=== PATIENT | female | born 1965 | race Caucasian/White ===

== ENCOUNTER → 2017-01-20 | Outpatient (CLI) | payer BC ==
[~2017-01-20] MED LIST: ACET-1256 PO; CHOL1TAB12 PO; METH500T37 PO; ZNT/150 PO
--- NOTE | 2017-01-20 14:24 | MAMMOGRAPHY REPORT ---
BILATERAL DIGITAL SCREENING MAMMOGRAM TOMOSYNTHESIS WITH CAD: 01/20/2017 CLINICAL HISTORY: Routine screening. Patient has no complaints. TECHNIQUE: Breast tomosynthesis in addition to standard 2D mammography was performed. Current study was also evaluated with a Computer Aided Detection (CAD) system. COMPARISON: Comparison is made to exams dated: 01/15/2016 mammogram, 09/02/2014 mammogram, 08/30/2013 m ammogram, 06/15/2012 mammogram, 12/16/2010 mammogram, and 12/16/2010 ultrasound - [facility]. BREAST COMPOSITION: There are scattered areas of fibroglandular density in both breasts. FINDINGS: No suspicious masses, calcifications, or areas of architectural distortion are noted in ei ther breast. There has been no significant interval change compared to prior exams. IMPRESSION: ACR BI-RADS CATEGORY 1: NEGATIVE There is no mammographic evidence of malignancy. A 1 year screening mammogram is recommended. The pa tient will receive written notification of the results. Approximately 10% of breast cancers are not detected with mammography. A negative mammographic report should not delay biopsy if a clinically suggestive mass is present. Yazmin Nino M.D. /:01/20/2017 12:31:08 Bakery Assistant: Kendal SCHMITZ(Gagan)(M), [facility] letter sent: Normal 1/2 BI-RADS Code: ACR BI-RADS Category 1: Negative
== END | disposition home or self-care (01) ==
LOC: C.MAMM 12:04
PROVIDERS: ATTEND Internal Medicine
DX: Z12.31 Encounter for screening mammogram for malignant neoplasm of breast (principal)

== ENCOUNTER → 2017-01-30 | Outpatient (CLI) | payer BC ==
[2017-01-30 12:50] LABS: BASO % 0.8 %; BASO ABS # 0.04 K/uL (0-0.2); COMPLETE YES; EOS % 8.8 %; HEMATOCRIT 38.7 % (37-47); IG% 0.2 %; LYMPH % 27.9 %; LYMPH ABS # 1.39 K/uL (1.2-3.4); MEAN CELL VOLUME 89.6 fL (80-100); MEAN CORPUSCULAR HEMOGLOBIN 29.6 pg (25-34); MEAN CORPUSCULAR HGB CONC 33.1 g/dl (32-36); MEAN PLATELET VOLUME 10.5 fL (7.4-10.4); MONO % 6.8 %; NEUT % 55.5 %; PLATELET COUNT 284 K/uL (130-400); RED BLOOD COUNT 4.32 M/uL (4.2-5.4); WHITE BLOOD COUNT 4.98 K/uL (4.8-10.8)
[2017-01-30 13:09] LABS: ALKALINE PHOSPHATASE 83 U/L (45-117); ALT/SGPT 20 U/L (12-78); AST/SGOT 13 U/L (15-37); BLOOD UREA NITROGEN 17 mg/dl (7-18); BUN/CREATININE RATIO 29.7 (10-20); CALCIUM 8.9 mg/dl (8.5-10.1); CARBON DIOXIDE 29 mmol/L (21-32); CHLORIDE 107 mmol/L (98-107); CHOLESTEROL 162 mg/dl (0-200); CHOLESTEROL/HDL RATIO 2.3; CREATININE 0.58 mg/dl (0.60-1.20); GLUCOSE 78 mg/dl (70-99); HDL CHOLESTEROL 71 mg/dl; LDL CHOLESTEROL CALCULATED 79 mg/dl; MAGNESIUM 2.1 mg/dl (1.8-2.4); POTASSIUM 3.7 mmol/L (3.5-5.1); SODIUM 143 mmol/L (136-145); TRIGLYCERIDES 58 mg/dl (0-150); VERY LOW DENSITY LIPOPROT CALC 12 mg/dl
[2017-01-30 13:18] LABS: FERRITIN 123.5 ng/ml (8.0-388.0); TOTAL IRON BINDING CAPACITY 295 mcg/dl (250-450)
[2017-02-02 13:29] LABS: VIT B1 PLASMA(THIAMIN)**90353 9 nmol/L (8-30)
== END | disposition home or self-care (01) ==
LOC: C.LAB 10:29
PROVIDERS: ATTEND Physician Assistant Medical
DX: R42 Dizziness and giddiness (principal); Z98.84 Bariatric surgery status

== ENCOUNTER → 2017-11-09 | Outpatient (CLI) | payer BC ==
[2017-11-09 12:19] LABS: BASO % 1.3 %; BASO ABS # 0.07 K/uL (0-0.2); EOS % 7.6 %; HEMATOCRIT 39.7 % (37-47); HEMOGLOBIN 13.4 g/dL (12.0-16.0); IG# 0.02 K/uL (0.00-0.02); LYMPH % 25.8 %; LYMPH ABS # 1.36 K/uL (1.2-3.4); MEAN CELL VOLUME 88.8 fL (80-100); MEAN CORPUSCULAR HGB CONC 33.8 g/dl (32-36); MEAN PLATELET VOLUME 9.8 fL (7.4-10.4); MONO % 6.5 %; MONO ABS # 0.34 K/uL (0.11-0.59); NEUT % 58.4 %; NEUT ABS # 3.08 K/uL (1.4-6.5); PLATELET COUNT 325 K/uL (130-400); RED CELL DISTRIBUTION WIDTH CV 12.8 % (11.5-14.5); RED CELL DISTRIBUTION WIDTH SD 41.3 fL (36.4-46.3); WHITE BLOOD COUNT 5.27 K/uL (4.8-10.8)
[2017-11-09 12:30] LABS: ALBUMIN 3.7 gm/dl (3.4-5.0); ALT/SGPT 23 U/L (12-78); AST/SGOT 18 U/L (15-37); BLOOD UREA NITROGEN 21 mg/dl (7-18); CALCIUM 8.8 mg/dl (8.5-10.1); CARBON DIOXIDE 28 mmol/L (21-32); CREATININE 0.63 mg/dl (0.60-1.20); GLUCOSE 77 mg/dl (70-99); POTASSIUM 3.4 mmol/L (3.5-5.1); SODIUM 140 mmol/L (136-145)
[2017-11-09 12:41] LABS: ALKALINE PHOSPHATASE 83 U/L (45-117); CHOLESTEROL 170 mg/dl (0-200); LDL CHOLESTEROL CALCULATED 77 mg/dl; TOTAL PROTEIN 7.5 gm/dl (6.4-8.2)
[2017-11-10 15:28] LABS: ANA SCREEN TC 249X NEGATIVE (NEGATIVE)
== END | disposition home or self-care (01) ==
LOC: C.LABBFT 09:40
PROVIDERS: ATTEND Internal Medicine
DX: M25.50 Pain in unspecified joint (principal); Z13.6 Encounter for screening for cardiovascular disorders

== ENCOUNTER 2018-01-01 11:45 | Inpatient (IN) | payer BC ==
[2017-12-31 14:45] VITALS: BP 134/82; PULSE 58; TEMP 36.7; O2SAT 96
[~2018-01-01] VITALS: Ht 162.6 cm; Wt 74.5 kg
[2018-01-01 13:26] LABS: BASO % 0.7 %; BASO ABS # 0.04 K/uL (0-0.2); EOS % 4.1 %; EOS ABS # 0.22 K/uL (0-0.5); HEMATOCRIT 38.8 % (37-47); HEMOGLOBIN 13.4 g/dL (12.0-16.0); IG# 0.01 K/uL (0.00-0.02); LYMPH ABS # 0.92 K/uL (1.2-3.4); MEAN CELL VOLUME 87.2 fL (80-100); MEAN CORPUSCULAR HEMOGLOBIN 30.1 pg (25-34); MEAN CORPUSCULAR HGB CONC 34.5 g/dl (32-36); MEAN PLATELET VOLUME 9.9 fL (7.4-10.4); MONO % 7.2 %; MONO ABS # 0.39 K/uL (0.11-0.59); NEUT % 70.8 %; NEUT ABS # 3.84 K/uL (1.4-6.5); PLATELET COUNT 245 K/uL (130-400); RED CELL DISTRIBUTION WIDTH CV 12.4 % (11.5-14.5); RED CELL DISTRIBUTION WIDTH SD 39.7 fL (36.4-46.3); WHITE BLOOD COUNT 5.42 K/uL (4.8-10.8)
[2018-01-01 13:33] LABS: PTT PATIENT 25.2 SECONDS (21.0-31.0)
[2018-01-01 13:44] LABS: ALBUMIN 3.6 gm/dl (3.4-5.0); ALT/SGPT 229 U/L (12-78); AST/SGOT 107 U/L (15-37); BLOOD UREA NITROGEN 17 mg/dl (7-18); CARBON DIOXIDE 25 mmol/L (21-32); CREATININE 0.64 mg/dl (0.60-1.20); GLUCOSE 84 mg/dl (70-99); LIPASE 117 U/L (73-393); POTASSIUM 3.2 mmol/L (3.5-5.1); SODIUM 140 mmol/L (136-145)
[2018-01-01 13:48] LABS: ALKALINE PHOSPHATASE 268 U/L (45-117); TOTAL PROTEIN 7.6 gm/dl (6.4-8.2)
--- NOTE | 2018-01-01 13:49 | DIAGNOSTIC IMAGING REPORT ---
ABDOMEN 2VIEW W/PA CHEST RTN HISTORY: 52 years-old Female RUQ/EPIGASTRIC PAIN, INDIGESTION acute right upper quadrant abdominal pain COMPARISON: KUB 10/22/2015 TECHNIQUE: PA view the chest with erect and supine views of the abdomen FINDINGS: Cardiomediastinal and hilar silhouettes are within normal limits. There is no pneumothorax, pleural effusion, focal airspace consolidation or overt pulmonary edema. The bones of the chest appear grossly intact. Surgical suture material about the left abdomen with associated surgical clips. No pneumatosis or pneumoperitoneum. The bowel gas pattern is nonobstructive. Renal shadows are partially obscured by bowel gas. No urolith identified. Mild to moderate stool volume about the right hemicolon. Calcifications of the pelvis suggest phleboliths. IMPRESSION: 1. No acute process of the chest. 2. Nonobstructive bowel gas pattern without pneumoperitoneum. The above report was generated using voice recognition software. It may contain grammatical, syntax or spelling errors. Electronically signed by: Frandy Matthews M.D. 01/01/2018 1:48 PM Dictated Date/Time: 01/01/2018 1:46 PM
--- NOTE | 2018-01-01 14:20 | DIAGNOSTIC IMAGING REPORT ---
ABDOMINAL ULTRASOUND, RIGHT UPPER QUADRANT HISTORY: RUQ PAIN, INDIGESTION. COMPARISON: CT of the abdomen and pelvis April 08, 2014 and right upper quadrant ultrasound May 06, 2013. FINDINGS: The liver is sonographically normal. There is no biliary ductal dilatation. The common bile duct measures 4 mm in caliber. Multiple gallstones are noted within the gallbladder. No gallbladder wall thickening or pericholecystic fluid. Pancreatic body is normal. Head and tail are partially obscured. There is no right hydronephrosis. IMPRESSION: 1. Cholelithiasis. No convincing sonographic evidence of acute cholecystitis. 2. No biliary ductal dilatation. Electronically signed by: Dung Baez M.D. 01/01/2018 2:19 PM Dictated Date/Time: 01/01/2018 2:17 PM
[2018-01-01] MEDS ORDERED: MoRPHine SULFATE 2 MG/ML CARP IV PRN (16:00)
[2018-01-01] MEDS ORDERED: ACETAMINOPHEN 325 MG TAB PO PRN (16:00)
[2018-01-01] MEDS ORDERED: ONDANSETRON INJ 2 MG/ML 2 ML VIAL IV PRN (16:00)
[2018-01-01] MEDS ORDERED: MoRPHine SULFATE 4 MG/ML 1 ML CARP\\VIAL IV PRN (16:00)
--- NOTE | 2018-01-01 16:11 | History and Physical ---
History & Physical Date & Time of Service: January 01, 2018 at 16:01 Chief Complaint: Yellowing, Discomfort, Abdominal Pain Primary Care Physician: Saturnino Hill M.D. History of Present Illness recent abd pain- upper abd with radiation to back and she notices mild jaundice elevated LFTs and mildly thickened gb w/ stones Past Medical/Surgical History Medical Problems: (1) Cholelithiasis (2) Headache (3) Hx-Malig Skin Melanoma Surgical Problems: (1) Bariatric Surgery Status (2) History of hysterectomy (3) S/P skin biopsy Social History Smoking Status: Never Smoker Housing status: lives with family Occupational Status: employed Allergies Coded Allergies: Sulfa Antibiotics (Verified Adverse Reaction, Unknown, NAUSEA, 01/01/18) Home Medications Scheduled Cholecalciferol (Vitamin D3), 1 TAB PO QAM Ranitidine Hcl (Zantac), 150 MG PO HS Scheduled PRN Acetaminophen (Tylenol), 2 TAB PO Q6 PRN for Pain Review of Systems Constitutional: No fever Respiratory: No cough, No shortness of breath Cardiovascular: No chest pain Abdomen: + pain, No nausea, No vomiting Genitourinary - Female: No dysuria Psychiatric: No anxiety Integumentary: No rash Physical Exam Vital Signs Date Time Temp Pulse Resp B/P (MAP) Pulse Ox O2 Delivery O2 Flow Rate FiO2 01/01/18 14:56 65 18 151/84 97 Room Air 01/01/18 13:01 61 01/01/18 12:57 65 18 145/98 98 Room Air 01/01/18 11:59 36.8 65 18 147/101 99 Room Air General Appearance: no apparent distress Head: atraumatic Eyes: + pertinent finding (possibly mild icteris) Neck: supple Respiratory/Chest: no respiratory distress Cardiovascular: regular rate, rhythm ( ) Abdomen/GI: soft, + tenderness (mild) Extremities/Musculoskelatal: no pedal edema Neurologic/Psych: alert Skin: warm/dry Diagnostics Laboratory Results Results Past 24 Hours Test 01/01/18 13:12 01/01/18 13:15 Range/Units White Blood Count 5.42 4.8-10.8 K/uL Red Blood Count 4.45 4.2-5.4 M/uL Hemoglobin 13.4 12.0-16.0 g/dL Hematocrit 38.8 37-47 % Mean Corpuscular Volume 87.2 80-100 fL Mean Corpuscular Hemoglobin 30.1 25-34 pg Mean Corpuscular Hemoglobin Concent 34.5 32-36 g/dl Platelet Count 245 130-400 K/uL Mean Platelet Volume 9.9 7.4-10.4 fL Neutrophils (%) (Auto) 70.8 % Lymphocytes (%) (Auto) 17.0 % Monocytes (%) (Auto) 7.2 % Eosinophils (%) (Auto) 4.1 % Basophils (%) (Auto) 0.7 % Neutrophils # (Auto) 3.84 1.4-6.5 K/uL Lymphocytes # (Auto) 0.92 1.2-3.4 K/uL Monocytes # (Auto) 0.39 0.11-0.59 K/uL Eosinophils # (Auto) 0.22 0-0.5 K/uL Basophils # (Auto) 0.04 0-0.2 K/uL RDW Standard Deviation 39.7 36.4-46.3 fL RDW Coefficient of Variation 12.4 11.5-14.5 % Immature Granulocyte % (Auto) 0.2 % Immature Granulocyte # (Auto) 0.01 0.00-0.02 K/uL Prothrombin Time 10.7 9.0-12.0 SECONDS Prothromb Time International Ratio 1.0 0.9-1.1 Activated Partial Thromboplast Time 25.2 21.0-31.0 SECONDS Partial Thromboplastin Ratio 1.0 Sodium Level 140 136-145 mmol/L Potassium Level 3.2 3.5-5.1 mmol/L Chloride Level 106 98-107 mmol/L Carbon Dioxide Level 25 21-32 mmol/L Anion Gap 10.0 3-11 mmol/L Blood Urea Nitrogen 17 7-18 mg/dl Creatinine 0.64 0.60-1.20 mg/dl Est Creatinine Clear Calc Drug Dose 103.9 ml/min Estimated GFR () 120.6 Estimated GFR (Non- 104.1 BUN/Creatinine Ratio 26.7 10-20 Random Glucose 84 70-99 mg/dl Calcium Level 9.0 8.5-10.1 mg/dl Total Bilirubin 1.6 0.2-1 mg/dl Aspartate Amino Transf (AST/SGOT) 107 15-37 U/L Alanine Aminotransferase (ALT/SGPT) 229 12-78 U/L Alkaline Phosphatase 268 45-117 U/L Troponin I < 0.015 0-0.045 ng/ml Total Protein 7.6 6.4-8.2 gm/dl Albumin 3.6 3.4-5.0 gm/dl Globulin 4.0 2.5-4.0 gm/dl Albumin/Globulin Ratio 0.9 0.9-2 Lipase 117 73-393 U/L Urine Color DK YELLOW Urine Appearance CLOUDY CLEAR Urine pH 5.0 4.5-7.5 Urine Specific [place] 1.024 1.000-1.030 Urine Protein TRACE NEG Urine Glucose (UA) NEG NEG Urine Ketones 2+ NEG Urine Occult Blood NEG NEG Urine Nitrite NEG NEG Urine Bilirubin 2+ NEG Urine Urobilinogen NEG NEG Urine Leukocyte Esterase TRACE NEG Urine WBC (Auto) 1-5 0-5 /hpf Urine RBC (Auto) 5-10 0-4 /hpf Urine Hyaline Casts (Auto) 1-5 0-5 /lpf Urine Epithelial Cells (Auto) >30 0-5 /lpf Urine Bacteria (Auto) 1+ NEG Urine Crystals CALCIUM OXALATE NONE PRSENT Urine Pathogenic Casts 0 /lpf Impression Assessment and Plan 01/01/18- pt w/ evidence of chronic/ possibly acute cholecystitis w/ elevated LFTs will admit, probable MRCP, recheck labs in am- Lap hung likely 24-48 hrs GI eval if LFTs elevate , have med team see her- Htn Resuscitation Status VTE Prophylaxis Will order VTE Prophylaxis: Yes
--- NOTE | 2018-01-01 16:29 | EMERGENCY ROOM VISIT NOTE ---
History First contact with patient: 12:06 Chief Complaint: ABDOMINAL PAIN Stated Complaint: YELLOWING, DISCOMFORT, ABDOMINAL PAIN History of Present Illness Patient is a generally healthy 52-year-old female who presents the emergency department for evaluation of upper abdominal pain. Patient relates that for the last 2-3 years, she has had episodes of right upper quadrant and epigastric pain, "aching in her stomach" that radiates through to her back. She was seen by her doctor at some point and had an EGD and an ultrasound which did not reveal any obvious pathology. Patient underwent a gastric sleeve procedure in 2016, with good results, and no postoperative complications. Since then however , she continues to note episodes every 2-3 months of epigastric and right upper quadrant pain. Her most recent episode occurred just this weekend, Monday into Monday. She states that this is the worst episode she has experienced thus far. She describes the pain as debilitating. She notes a sharp epigastric pain that radiates through to her back and aching in her stomach. She tried taking Tylenol and Zantac for her symptoms. She states that gradually the pain did go away on its own and at the present time she only notes some slight right upper quadrant pain and esophageal fullness or indigestion. She thought yesterday that she was looking a little jaundiced in her skin and in her eyes. She notes her urine is tea colored, and her stools are white and chalky. She reports a normal appetite but has not had much to eat or drink over the last couple of days. She is not allowed to take any NSAIDs or aspirin due to her gastric sleeve procedure. She denies any alcohol consumption. She is not using any other [id number] medications or herbal supplements. She also did note a rash on her medial right thigh yesterday, she thought it was related to applying a lotion with self precious. She is also status post hysterectomy and appendectomy in the past. She denies any chest pain, palpitations or shortness of breath. Review of Systems Review of systems as per HPI. All other systems reviewed were negative. 10 systems reviewed. Past Medical/Surgical History Medical Problems: (1) Cholelithiasis (2) Headache (3) Hx-Malig Skin Melanoma Surgical Problems: (1) Bariatric Surgery Status (2) History of hysterectomy (3) S/P skin biopsy Electronic medical records are reviewed and summarized as above/below. See Problem List. Social History Smoking Status: Never Smoker Alcohol Use: none Marital Status: Housing Status: lives with family Occupation Status: employed Current/Historical Medications Scheduled Cholecalciferol (Vitamin D3), 1 TAB PO QAM Ranitidine Hcl (Zantac), 150 MG PO HS Scheduled PRN Acetaminophen (Tylenol), 2 TAB PO Q6 PRN for Pain Physical Exam Vital Signs Date Time Temp Pulse Resp B/P (MAP) Pulse Ox O2 Delivery O2 Flow Rate FiO2 01/01/18 17:13 Room Air 01/01/18 15:59 72 18 135/87 100 Room Air 01/01/18 14:56 65 18 151/84 97 Room Air 01/01/18 13:01 61 01/01/18 12:57 65 18 145/98 98 Room Air 01/01/18 11:59 36.8 65 18 147/101 99 Room Air Physical Exam CONSTITUTIONAL: Patient is a pleasant, well-appearing 52-year-old female who is awake and alert and in no acute distress. EYES: Pupils equal, round, reactive to light and accommodation. EOMs intact without nystagmus. Sclera are anicteric. ENT: Tympanic membranes intact, with normal landmarks. External canals are clear. Oral and nasopharynx are clear. Mucous membranes are moist, no lesions , tongue and gums appear normal. NECK: No bruits auscultated. Supple without lymphadenopathy. No thyromegaly. No meningeal signs. Full active range of motion without discomfort. CARDIOVASCULAR: Regular rate and rhythm, with normal S1 and S2, no murmur or gallop or rub is heard. No carotid bruits auscultated. No JVD. Peripheral pulses easy to palpable. RESPIRATORY: Breath sounds equal and clear to auscultation without wheezes, rales, or rhonchi heard. Full and equal chest expansion without accessory muscle use or retractions. GI: Bowel sounds are present. Abdomen is soft, nontender, nondistended. No organomegaly. No pulsatile masses. No guarding or rebound. MUSCULOSKELETAL: Full range of motion of extremities x 4 with good strength. No cyanosis, edema, joint tenderness or swelling. No deformity. INTEGUMENTARY: Patient has a petechial rash noted on the inner right thigh. Slight petechiae noted on the inner left thigh as well. No other skin rashes or lesions noted. NEUROLOGICAL: Alert, oriented, and cooperative. Cranial nerves, sensation and strength grossly intact. Pupils round, equal, and react to light, EOMs are full. LYMPH: No lymphadenopathy. Medical Decision & Procedures ER Provider Diagnostic Interpretation: ABDOMINAL ULTRASOUND, RIGHT UPPER QUADRANT HISTORY: RUQ PAIN, INDIGESTION. COMPARISON: CT of the abdomen and pelvis April 08, 2014 and right upper quadrant ultrasound May 06, 2013. FINDINGS: The liver is sonographically normal. There is no biliary ductal dilatation. The common bile duct measures 4 mm in caliber. Multiple gallstones are noted within the gallbladder. No gallbladder wall thickening or pericholecystic fluid. Pancreatic body is normal. Head and tail are partially obscured. There is no right hydronephrosis. IMPRESSION: 1. Cholelithiasis. No convincing sonographic evidence of acute cholecystitis. 2. No biliary ductal dilatation. ABDOMEN 2VIEW W/PA CHEST RTN HISTORY: 52 years-old Female RUQ/EPIGASTRIC PAIN, INDIGESTION acute right upper quadrant abdominal pain COMPARISON: KUB 10/22/2015 TECHNIQUE: PA view the chest with erect and supine views of the abdomen FINDINGS: Cardiomediastinal and hilar silhouettes are within normal limits. There is no pneumothorax, pleural effusion, focal airspace consolidation or overt pulmonary edema. The bones of the chest appear grossly intact. Surgical suture material about the left abdomen with associated surgical clips. No pneumatosis or pneumoperitoneum. The bowel gas pattern is nonobstructive. Renal shadows are partially obscured by bowel gas. No urolith identified. Mild to moderate stool volume about the right hemicolon. Calcifications of the pelvis suggest phleboliths. IMPRESSION: 1. No acute process of the chest. 2. Nonobstructive bowel gas pattern without pneumoperitoneum. Laboratory Results 01/01/18 13:12 Red Blood Count 4.45, Mean Corpuscular Volume 87.2, Mean Corpuscular Hemoglobin 30.1, Mean Corpuscular Hemoglobin Concent 34.5, Mean Platelet Volume 9.9, Neutrophils (%) (Auto) 70.8, Lymphocytes (%) (Auto) 17.0, Monocytes (%) (Auto) 7.2, Eosinophils (%) (Auto) 4.1, Basophils (%) (Auto) 0.7, Neutrophils # (Auto) 3.84, Lymphocytes # (Auto) 0.92, Monocytes # (Auto) 0.39, Eosinophils # (Auto) 0.22, Basophils # (Auto) 0.04 01/01/18 13:12 Test 01/01/18 13:12 01/01/18 13:15 White Blood Count 5.42 K/uL (4.8-10.8) Red Blood Count 4.45 M/uL (4.2-5.4) Hemoglobin 13.4 g/dL (12.0-16.0) Hematocrit 38.8 % (37-47) Mean Corpuscular Volume 87.2 fL (80-100) Mean Corpuscular Hemoglobin 30.1 pg (25-34) Mean Corpuscular Hemoglobin Concent 34.5 g/dl (32-36) Platelet Count 245 K/uL (130-400) Mean Platelet Volume 9.9 fL (7.4-10.4) Neutrophils (%) (Auto) 70.8 % Lymphocytes (%) (Auto) 17.0 % Monocytes (%) (Auto) 7.2 % Eosinophils (%) (Auto) 4.1 % Basophils (%) (Auto) 0.7 % Neutrophils # (Auto) 3.84 K/uL (1.4-6.5) Lymphocytes # (Auto) 0.92 K/uL (1.2-3.4) Monocytes # (Auto) 0.39 K/uL (0.11-0.59) Eosinophils # (Auto) 0.22 K/uL (0-0.5) Basophils # (Auto) 0.04 K/uL (0-0.2) RDW Standard Deviation 39.7 fL (36.4-46.3) RDW Coefficient of Variation 12.4 % (11.5-14.5) Immature Granulocyte % (Auto) 0.2 % Immature Granulocyte # (Auto) 0.01 K/uL (0.00-0.02) Prothrombin Time 10.7 SECONDS (9.0-12.0) Prothromb Time International Ratio 1.0 (0.9-1.1) Activated Partial Thromboplast Time 25.2 SECONDS (21.0-31.0) Partial Thromboplastin Ratio 1.0 Anion Gap 10.0 mmol/L (3-11) Est Creatinine Clear Calc Drug Dose 103.9 ml/min Estimated GFR () 120.6 Estimated GFR (Non- 104.1 BUN/Creatinine Ratio 26.7 (10-20) Calcium Level 9.0 mg/dl (8.5-10.1) Total Bilirubin 1.6 mg/dl (0.2-1) Aspartate Amino Transf (AST/SGOT) 107 U/L (15-37) Alanine Aminotransferase (ALT/SGPT) 229 U/L (12-78) Alkaline Phosphatase 268 U/L (45-117) Troponin I < 0.015 ng/ml (0-0.045) Total Protein 7.6 gm/dl (6.4-8.2) Albumin 3.6 gm/dl (3.4-5.0) Globulin 4.0 gm/dl (2.5-4.0) Albumin/Globulin Ratio 0.9 (0.9-2) Lipase 117 U/L (73-393) Urine Color DK YELLOW Urine Appearance CLOUDY (CLEAR) Urine pH 5.0 (4.5-7.5) Urine Specific [place] 1.024 (1.000-1.030) Urine Protein TRACE (NEG) Urine Glucose (UA) NEG (NEG) Urine Ketones 2+ (NEG) Urine Occult Blood NEG (NEG) Urine Nitrite NEG (NEG) Urine Bilirubin 2+ (NEG) Urine Urobilinogen NEG (NEG) Urine Leukocyte Esterase TRACE (NEG) Urine WBC (Auto) 1-5 /hpf (0-5) Urine RBC (Auto) 5-10 /hpf (0-4) Urine Hyaline Casts (Auto) 1-5 /lpf (0-5) Urine Epithelial Cells (Auto) >30 /lpf (0-5) Urine Bacteria (Auto) 1+ (NEG) Urine Crystals CALCIUM OXALATE (NONE Urine Pathogenic Casts /lpf (0) ECG Per My Interpretation Indication: abdominal pain Rate (beats per minute): 63 Rhythm: normal sinus Findings: no acute ischemic change, no ectopy Change: no significant change ED Course The patient was seen and assessed as above. Her old records were reviewed, including recent laboratory studies performed about 2 months ago as an outpatient. IV lock was initiated and laboratory studies were collected. She was offered but declined medication for pain and discomfort while in the emergency department. EKG was performed and was as noted above. Laboratory studies were occluding urinalysis, CBC with differential, CMP, lipase, coags and troponin. Acute abdominal series was performed and was unremarkable. Right upper quadrant ultrasound was obtained. Patient's laboratory studies noted a normal white count of 5400, no left shift or bandemia. H&H is 13 and 38, platelet count 245,000. Coags are within normal limits. Electrolytes noted a potassium of 3.2, otherwise remainder were normal, renal function is unremarkable. Patient had slight elevation of her total bilirubin, AST, ALT and alk phos. Lipase is normal. Troponin is negative. Urinalysis noted 2+ ketones, 2+ bilirubin, trace leuk esterase, 5-10 RBCs and greater than 30 epithelial cells. Bacteria and calcium oxalate crystals were both noted. All laboratory and diagnostic imaging studies were discussed with the patient and her spouse and reviewed with attending physician. I was able to review the patient with general surgery, Miki Humphrey PA-C and Dr. Ibarra, who evaluated the patient in the emergency department, and will admit to their service for further care and evaluation, with likely cholecystectomy. Please refer to admission orders and surgical H&P for further information. Patient was reassessed prior to admission and had no complaints. Questions were answered. She remained hemodynamically stable while in the emergency department. Differential diagnoses entertained included acute cholecystitis, cholelithiasis , biliary colic, ascending cholangitis, pancreatitis, peptic ulcer disease, GERD , gastritis, bowel obstruction, perforation, mass or malignancy, among others. Medical Decision See emergency department course. Medication Reconcilliation Current Medication List: was personally reviewed by me Blood Pressure Screening Patient's blood pressure: Elevated blood pressure Blood pressure disposition: Elevated BP felt to be situational Impression Primary Impression: Cholelithiasis Additional Impression: Elevated LFTs Departure Information Referrals Saturnino Hill M.D. (PCP) Patient Instructions My [facility] Problem Qualifiers Primary Impression: Cholelithiasis Cholelithiasis location: gallbladder Cholecystitis presence: without cholecystitis
[2018-01-01 17:13] VITALS: BP 132/85; PULSE 62; TEMP 36.8; Ht 162.6 cm; Wt 74.5 kg
[2018-01-01] MEDS: LACTATED RINGER'S 1000ML 1,000 ML IV SCH (17:53)
[2018-01-01] MEDS: AMPICILLIN/SULBACTAM SOD INJ 3,000 MG in SODIUM CHLORIDE 0.9% 100ML 100 ML IV SCH ×2 (19:00→23:33)
[2018-01-01] MEDS: RANITIDINE HCL 150 MG TAB PO SCH (20:46)
--- NOTE | 2018-01-01 21:38 | DIAGNOSTIC IMAGING REPORT ---
MRCP CLINICAL HISTORY: 52 years-old Female presenting with cholelithiasis, elevated LFTs. TECHNIQUE: Multisequence, multiplanar MR imaging of the abdomen was performed without the use of intravenous contrast. IV contrast: None. COMPARISON: Ultrasound performed earlier the same day and CT from 2014. FINDINGS: Localizer images: Unremarkable. Lung bases: Lungs and pleural spaces clear. Normal heart size. No pericardial or pleural effusion. Liver: Normal morphology. Biliary: No intrahepatic or extrahepatic biliary ductal dilatation. Gallbladder contains gallstones. Pancreas: Normal noncontrast appearance. Spleen: Normal noncontrast appearance. Adrenal glands: Normal noncontrast appearance. Kidneys and ureters: Chronic dilatation of the left renal collecting system with abrupt transition at the left ureteropelvic junction, likely chronic ureteropelvic junction obstruction. Bowel: Normal noncontrast appearance. No bowel obstruction. Peritoneal cavity: No free fluid. Lymph nodes: No gross lymphadenopathy allowing for noncontrast technique. Vasculature: Normal noncontrast appearance. Abdominal wall: Normal. Musculoskeletal: Normal. IMPRESSION: 1. Cholelithiasis. No evidence of biliary ductal dilatation or choledocholithiasis. No evidence of cholecystitis. Electronically signed by: Dru Luque M.D. 01/01/2018 9:36 PM Dictated Date/Time: 01/01/2018 9:32 PM
--- NOTE | 2018-01-01 22:05 | Medical Consult ---
Consultation Date of Consultation: January 01, 2018. Attending Physician: Shashank Ibarra M.D. Reason for Consultation: Elevated BP History of Present Illness 52 y/o F who was admitted on 01/01 for a cholecystectomy with Dr. Ibarra tomorrow. Pt is doing well pre-op. Tolerating PO without issue. Pt denies fever, SOB, chest pain, abd pain, n/v/c/d, LE swelling. Consult was placed due to BPs in the 150s-160s/100s in the ED. Pt denies hx of HTN. She states that she was seen by her PCP in October and her BP was WNL at that time. She typically runs 120s-130s/70-80. She has never been on medication for BP. Past Medical/Surgical History Medical Problems: (1) Elevated LFTs Status: Acute (2) Headache Status: Chronic GERD s/p gastric bypass s/p hysterectomy Social History Smoking Status: Never Smoker Alcohol Use: none Drug Use: none Marital Status: Housing Status: lives with family Occupation Status: employed Allergies Coded Allergies: Sulfa Antibiotics (Verified Adverse Reaction, Unknown, NAUSEA, 01/01/18) Current Inpatient Medications Current Inpatient Medications Medications (Trade) Dose Ordered Sig/Delphine Route Start Time Stop Time Status Last Admin Dose Admin Lactated Ringer's 1,000 ml @ 100 mls/hr Q10H IV 01/01/18 17:46 01/31/18 17:45 01/01/18 17:53 100 MLS/HR Ampicillin Sodium/ Sulbactam Sodium 3000 mg/Sodium Chloride 108 ml @ 200 mls/hr Q6 IV 01/01/18 18:00 01/02/18 17:59 01/01/18 19:00 200 MLS/HR Ondansetron HCl (Zofran Inj) 4 mg Q4H PRN IV 01/01/18 16:00 01/31/18 15:59 Acetaminophen (Tylenol Tab) 650 mg Q6H PRN PO 01/01/18 16:00 01/31/18 15:59 Morphine Sulfate (MoRPHine SULFATE INJ) FOR PAIN, 2-4MG 2MG FOR P... Q1H PRN IV 01/01/18 16:00 01/15/18 15:59 Ranitidine HCl (zANTac TAB) 150 mg HS PO 01/01/18 21:00 01/31/18 20:59 Review of Systems Pertinent positives and negatives reviewed in HPI--all others negative Physical Exam Date Time Temp Pulse Resp B/P (MAP) Pulse Ox O2 Delivery O2 Flow Rate FiO2 01/01/18 18:00 Room Air 01/01/18 17:13 36.8 62 16 132/85 Room Air 01/01/18 15:59 72 18 135/87 100 Room Air 01/01/18 14:56 65 18 151/84 97 Room Air 01/01/18 13:01 61 01/01/18 12:57 65 18 145/98 98 Room Air 01/01/18 11:59 36.8 65 18 147/101 99 Room Air General Appearance: WD/WN, no apparent distress Head: normocephalic, atraumatic Eyes: normal inspection, sclerae normal Respiratory/Chest: normal breath sounds, no respiratory distress Cardiovascular: regular rate, rhythm, no edema Abdomen/GI: non tender, soft Extremities/Musculoskelatal: no calf tenderness, no pedal edema Neurologic/Psych: alert, normal mood/affect, oriented x 3 Skin: normal color, warm/dry Laboratory Results Last 24 Hours Test 01/01/18 13:12 01/01/18 13:15 White Blood Count 5.42 K/uL Red Blood Count 4.45 M/uL Hemoglobin 13.4 g/dL Hematocrit 38.8 % Mean Corpuscular Volume 87.2 fL Mean Corpuscular Hemoglobin 30.1 pg Mean Corpuscular Hemoglobin Concent 34.5 g/dl Platelet Count 245 K/uL Mean Platelet Volume 9.9 fL Neutrophils (%) (Auto) 70.8 % Lymphocytes (%) (Auto) 17.0 % Monocytes (%) (Auto) 7.2 % Eosinophils (%) (Auto) 4.1 % Basophils (%) (Auto) 0.7 % Neutrophils # (Auto) 3.84 K/uL Lymphocytes # (Auto) 0.92 K/uL Monocytes # (Auto) 0.39 K/uL Eosinophils # (Auto) 0.22 K/uL Basophils # (Auto) 0.04 K/uL RDW Standard Deviation 39.7 fL RDW Coefficient of Variation 12.4 % Immature Granulocyte % (Auto) 0.2 % Immature Granulocyte # (Auto) 0.01 K/uL Prothrombin Time 10.7 SECONDS Prothromb Time International Ratio 1.0 Activated Partial Thromboplast Time 25.2 SECONDS Partial Thromboplastin Ratio 1.0 Sodium Level 140 mmol/L Potassium Level 3.2 mmol/L Chloride Level 106 mmol/L Carbon Dioxide Level 25 mmol/L Anion Gap 10.0 mmol/L Blood Urea Nitrogen 17 mg/dl Creatinine 0.64 mg/dl Est Creatinine Clear Calc Drug Dose 103.9 ml/min Estimated GFR () 120.6 Estimated GFR (Non- 104.1 BUN/Creatinine Ratio 26.7 Random Glucose 84 mg/dl Calcium Level 9.0 mg/dl Total Bilirubin 1.6 mg/dl Aspartate Amino Transf (AST/SGOT) 107 U/L Alanine Aminotransferase (ALT/SGPT) 229 U/L Alkaline Phosphatase 268 U/L Troponin I < 0.015 ng/ml Total Protein 7.6 gm/dl Albumin 3.6 gm/dl Globulin 4.0 gm/dl Albumin/Globulin Ratio 0.9 Lipase 117 U/L Urine Color DK YELLOW Urine Appearance CLOUDY Urine pH 5.0 Urine Specific [place] 1.024 Urine Protein TRACE Urine Glucose (UA) NEG Urine Ketones 2+ Urine Occult Blood NEG Urine Nitrite NEG Urine Bilirubin 2+ Urine Urobilinogen NEG Urine Leukocyte Esterase TRACE Urine WBC (Auto) 1-5 /hpf Urine RBC (Auto) 5-10 /hpf Urine Hyaline Casts (Auto) 1-5 /lpf Urine Epithelial Cells (Auto) >30 /lpf Urine Bacteria (Auto) 1+ Urine Crystals CALCIUM OXALATE Urine Pathogenic Casts /lpf Assessment & Plan .52 y/o F who was admitted on 01/01 for a cholecystectomy with Dr. Ibarra tomorrow. Elevated BP: Pt denies hx of HTN. Was seen by PCP in October and BP was WNL at that time, typically runs 120s- 130s/70-80. She has never been on medication for BP. BP now WNL, possibly related to anxiety/stress of being in the ED Abd pain: planning for hung tomorrow with Dr. Ibarra Diet and DVT proph as per gen surg Possible MRCP tonight Headaches: monitor, stable HypoK: replace and monitor
[2018-01-01 22:56] VITALS: BP 121/81; PULSE 55; TEMP 36.8; O2SAT 96
[2018-01-02] VITALS (8 sets, daily range): BP systolic 99–138; BP diastolic 65–85; PULSE 57–78; TEMP 36.4–36.8; O2SAT 94–99
[2018-01-02] MEDS: LACTATED RINGER'S 1000ML 1,000 ML IV SCH ×2 (03:42→18:05)
--- NOTE | 2018-01-02 05:43 | Surgery Progress Note ---
Surgery Progress Note Date of Service January 02, 2018. Subjective stable- MRCP negative except +gs Objective Vital Signs: Date Time Temp Pulse Resp B/P (MAP) Pulse Ox O2 Delivery O2 Flow Rate FiO2 01/01/18 23:35 Room Air 01/01/18 22:56 36.8 55 17 121/81 (94) 96 Room Air 01/01/18 18:00 Room Air 01/01/18 17:13 36.8 62 16 132/85 Room Air 01/01/18 15:59 72 18 135/87 100 Room Air 01/01/18 14:56 65 18 151/84 97 Room Air 01/01/18 13:01 61 01/01/18 12:57 65 18 145/98 98 Room Air 01/01/18 11:59 36.8 65 18 147/101 99 Room Air General Appearance: no apparent distress Respiratory/Chest: no respiratory distress Abdomen: soft Laboratory Results: Results Past 24 Hours Test 01/01/18 13:12 01/01/18 13:15 01/02/18 04:44 Range/Units White Blood Count 5.42 4.8-10.8 K/uL Red Blood Count 4.45 4.2-5.4 M/uL Hemoglobin 13.4 12.0-16.0 g/dL Hematocrit 38.8 37-47 % Mean Corpuscular Volume 87.2 80-100 fL Mean Corpuscular Hemoglobin 30.1 25-34 pg Mean Corpuscular Hemoglobin Concent 34.5 32-36 g/dl Platelet Count 245 130-400 K/uL Mean Platelet Volume 9.9 7.4-10.4 fL Neutrophils (%) (Auto) 70.8 % Lymphocytes (%) (Auto) 17.0 % Monocytes (%) (Auto) 7.2 % Eosinophils (%) (Auto) 4.1 % Basophils (%) (Auto) 0.7 % Neutrophils # (Auto) 3.84 1.4-6.5 K/uL Lymphocytes # (Auto) 0.92 1.2-3.4 K/uL Monocytes # (Auto) 0.39 0.11-0.59 K/uL Eosinophils # (Auto) 0.22 0-0.5 K/uL Basophils # (Auto) 0.04 0-0.2 K/uL RDW Standard Deviation 39.7 36.4-46.3 fL RDW Coefficient of Variation 12.4 11.5-14.5 % Immature Granulocyte % (Auto) 0.2 % Immature Granulocyte # (Auto) 0.01 0.00-0.02 K/uL Prothrombin Time 10.7 9.0-12.0 SECONDS Prothromb Time International Ratio 1.0 0.9-1.1 Activated Partial Thromboplast Time 25.2 21.0-31.0 SECONDS Partial Thromboplastin Ratio 1.0 Sodium Level 140 136-145 mmol/L Potassium Level 3.2 3.5-5.1 mmol/L Chloride Level 106 98-107 mmol/L Carbon Dioxide Level 25 21-32 mmol/L Anion Gap 10.0 3-11 mmol/L Blood Urea Nitrogen 17 7-18 mg/dl Creatinine 0.64 0.60-1.20 mg/dl Est Creatinine Clear Calc Drug Dose 103.9 ml/min Estimated GFR () 120.6 Estimated GFR (Non- 104.1 BUN/Creatinine Ratio 26.7 10-20 Random Glucose 84 70-99 mg/dl Calcium Level 9.0 8.5-10.1 mg/dl Total Bilirubin 1.6 0.2-1 mg/dl Aspartate Amino Transf (AST/SGOT) 107 15-37 U/L Alanine Aminotransferase (ALT/SGPT) 229 12-78 U/L Alkaline Phosphatase 268 45-117 U/L Troponin I < 0.015 0-0.045 ng/ml Total Protein 7.6 6.4-8.2 gm/dl Albumin 3.6 3.4-5.0 gm/dl Globulin 4.0 2.5-4.0 gm/dl Albumin/Globulin Ratio 0.9 0.9-2 Lipase 117 73-393 U/L Urine Color DK YELLOW Urine Appearance CLOUDY CLEAR Urine pH 5.0 4.5-7.5 Urine Specific [place] 1.024 1.000-1.030 Urine Protein TRACE NEG Urine Glucose (UA) NEG NEG Urine Ketones 2+ NEG Urine Occult Blood NEG NEG Urine Nitrite NEG NEG Urine Bilirubin 2+ NEG Urine Urobilinogen NEG NEG Urine Leukocyte Esterase TRACE NEG Urine WBC (Auto) 1-5 0-5 /hpf Urine RBC (Auto) 5-10 0-4 /hpf Urine Hyaline Casts (Auto) 1-5 0-5 /lpf Urine Epithelial Cells (Auto) >30 0-5 /lpf Urine Bacteria (Auto) 1+ NEG Urine Crystals CALCIUM OXALATE NONE PRSENT Urine Pathogenic Casts 0 /lpf Assessment & Plan 01/02/18- plan for lap hung , possible cholangiogram later today- check labs MRCP negative for CBD stone
[2018-01-02] MEDS: AMPICILLIN/SULBACTAM SOD INJ 3,000 MG in SODIUM CHLORIDE 0.9% 100ML 100 ML IV SCH ×2 (05:49→11:40)
[2018-01-02 06:47] LABS: BASO % 0.9 %; BASO ABS # 0.04 K/uL (0-0.2); EOS % 9.1 %; HEMATOCRIT 34.1 % (37-47); HEMOGLOBIN 11.7 g/dL (12.0-16.0); LYMPH % 22.3 %; LYMPH ABS # 0.98 K/uL (1.2-3.4); MEAN CELL VOLUME 86.8 fL (80-100); MEAN CORPUSCULAR HEMOGLOBIN 29.8 pg (25-34); MEAN CORPUSCULAR HGB CONC 34.3 g/dl (32-36); MEAN PLATELET VOLUME 9.4 fL (7.4-10.4); MONO ABS # 0.35 K/uL (0.11-0.59); NEUT % 59.7 %; NEUT ABS # 2.63 K/uL (1.4-6.5); PLATELET COUNT 201 K/uL (130-400); RED CELL DISTRIBUTION WIDTH CV 12.3 % (11.5-14.5); RED CELL DISTRIBUTION WIDTH SD 39.7 fL (36.4-46.3)
[2018-01-02 07:06] LABS: ALBUMIN 2.9 gm/dl (3.4-5.0); CALCIUM 8.4 mg/dl (8.5-10.1); CREATININE 0.44 mg/dl (0.60-1.20); POTASSIUM 3.1 mmol/L (3.5-5.1)
[2018-01-02 07:10] LABS: TOTAL PROTEIN 6.2 gm/dl (6.4-8.2)
[2018-01-02] MEDS: POTASSIUM CHLR 10 MEQ / WTR 100 ML IV SCH ×2 (08:48→09:56)
[2018-01-02] MEDS ORDERED: MIDAZOLAM HCL 1 MG/ML 2ML VIAL ONE (12:03)
[2018-01-02] MEDS ORDERED: FENTANYL CITRATE INJ 50 MCG/1 ML 2 ML VIAL ONE ×2 (12:04→14:04)
[2018-01-02] MEDS ORDERED: BUPIVACAINE 0.5 % 5 MG/1 ML MPF 30ML VIAL ONE (12:24)
[2018-01-02] MEDS ORDERED: ROCURONIUM BROMIDE 10 MG/ML 5 ML VIAL ONE (13:03)
[2018-01-02] MEDS ORDERED: LIDOCAINE HCL 2% 2 ML VIAL (20MG/ML) ONE (13:03)
[2018-01-02] MEDS ORDERED: NEOSTIGMINE METHYLSULFATE 5 MG/5 ML SYR ONE (13:03)
[2018-01-02] MEDS ORDERED: ONDANSETRON INJ 2 MG/ML 2 ML VIAL ONE (13:03)
[2018-01-02] MEDS ORDERED: PROPOFOL IV EMULSION 10 MG/ML 20 ML VIAL ONE (13:03)
[2018-01-02] MEDS ORDERED: GLYCOPYRROLATE INJ 0.2 MG/ML VIAL ONE (13:03)
[2018-01-02] MEDS ORDERED: DEXAMETHASONE SOD INJ 4 MG/ML VIAL ONE (13:03)
[2018-01-02] MEDS ORDERED: LABETALOL HCL IV 5 MG/ML 20ML ONE ×2 (13:09→13:23)
--- NOTE | 2018-01-02 13:43 | [facility] Operative Report ---
Operative Report Operative Date January 02, 2018. Pre-Operative Diagnosis Acute/Chronic Cholecystitis Post-Operative Diagnosis Acute/Chronic Cholecystitis Procedure(s) Performed Laparoscopic Cholecystectomy Surgeon Dr Shashank Ibarra Door To Door Salesperson Surgeon(s) Garrick OTTO_Pasha Estimated Blood Loss 20cc Findings thickened gallbladder Specimens As Per Surgeon A. Gall Bladder and Contents Drains None Anesthesia Type General Complication(s) none Disposition Recovery Room / PACU I attest to the content of the Intraoperative Record and any orders documented therein. Any exceptions are noted below.
--- NOTE | 2018-01-02 13:45 | Hospitalist Progress Note ---
Hospitalist Progress Note Date of Service January 02, 2018. Subjective Pt evaluation today including: conversation w/ patient, conversation w/ family , physical exam, chart review, lab review, review of studies, review of inpatient medication list Patient seen and evaluated. No acute events overnight. Reporting no pain at this time. States she has had a long history of possibly gallbladder pain that was intermittent but related this to her gastric sleeve. She is afebrile and without leukocytosis. Hospitalist consulted due to initially elevated BP however this has stabilized. She has no H/O HTN and not on medications for such. Planning for surgical intervention this afternoon and possible D/C later today vs tomorrow. Constitutional: No fever, No chills Respiratory: No shortness of breath Cardiovascular: No chest pain Abdomen: + constipation (chronic), No pain, No nausea, No vomiting, No diarrhea Female : No dysuria Heme: No abnormal bleeding/bruising Medications Current Inpatient Medications Medications (Trade) Dose Ordered Sig/Delphine Route Start Time Stop Time Status Last Admin Dose Admin Lactated Ringer's 1,000 ml @ 100 mls/hr Q10H IV 01/01/18 17:46 01/31/18 17:45 01/02/18 03:42 100 MLS/HR Ampicillin Sodium/ Sulbactam Sodium 3000 mg/Sodium Chloride 108 ml @ 200 mls/hr Q6 IV 01/01/18 18:00 01/02/18 17:59 01/02/18 11:40 200 MLS/HR Ondansetron HCl (Zofran Inj) 4 mg Q4H PRN IV 01/01/18 16:00 01/31/18 15:59 Acetaminophen (Tylenol Tab) 650 mg Q6H PRN PO 01/01/18 16:00 01/31/18 15:59 Morphine Sulfate (MoRPHine SULFATE INJ) FOR PAIN, 2-4MG 2MG FOR P... Q1H PRN IV 01/01/18 16:00 01/15/18 15:59 Ranitidine HCl (zANTac TAB) 150 mg HS PO 01/01/18 21:00 01/31/18 20:59 Objective Vital Signs Date Time Temp Pulse Resp B/P (MAP) Pulse Ox O2 Delivery O2 Flow Rate FiO2 01/02/18 10:45 Room Air 01/02/18 07:50 36.8 62 16 138/85 (102) 97 Room Air 01/02/18 07:30 Room Air 01/01/18 23:35 Room Air 01/01/18 22:56 36.8 55 17 121/81 (94) 96 Room Air 01/01/18 18:00 Room Air 01/01/18 17:13 36.8 62 16 132/85 Room Air 01/01/18 15:59 72 18 135/87 100 Room Air 01/01/18 14:56 65 18 151/84 97 Room Air Physical Exam General Appearance: WD/WN, no apparent distress Eyes: sclerae normal ENT: hearing grossly normal Neck: supple, no JVD, trachea midline Respiratory/Chest: lungs clear, normal breath sounds, no respiratory distress, no accessory muscle use Cardiovascular: regular rate, rhythm, no gallop, no murmur Abdomen: normal bowel sounds, non tender, soft Extremities: no pedal edema, no calf tenderness Neurologic/Psychiatric: alert, oriented x 3 Skin: normal color, warm/dry Laboratory Results Last 24 Hours Test 01/02/18 06:29 White Blood Count 4.40 K/uL Red Blood Count 3.93 M/uL Hemoglobin 11.7 g/dL Hematocrit 34.1 % Mean Corpuscular Volume 86.8 fL Mean Corpuscular Hemoglobin 29.8 pg Mean Corpuscular Hemoglobin Concent 34.3 g/dl Platelet Count 201 K/uL Mean Platelet Volume 9.4 fL Neutrophils (%) (Auto) 59.7 % Lymphocytes (%) (Auto) 22.3 % Monocytes (%) (Auto) 8.0 % Eosinophils (%) (Auto) 9.1 % Basophils (%) (Auto) 0.9 % Neutrophils # (Auto) 2.63 K/uL Lymphocytes # (Auto) 0.98 K/uL Monocytes # (Auto) 0.35 K/uL Eosinophils # (Auto) 0.40 K/uL Basophils # (Auto) 0.04 K/uL RDW Standard Deviation 39.7 fL RDW Coefficient of Variation 12.3 % Immature Granulocyte % (Auto) 0.0 % Immature Granulocyte # (Auto) 0.00 K/uL Sodium Level 141 mmol/L Potassium Level 3.1 mmol/L Chloride Level 106 mmol/L Carbon Dioxide Level 27 mmol/L Anion Gap 8.0 mmol/L Blood Urea Nitrogen 14 mg/dl Creatinine 0.44 mg/dl Est Creatinine Clear Calc Drug Dose 151.3 ml/min Estimated GFR () 136.4 Estimated GFR (Non- 117.7 BUN/Creatinine Ratio 30.8 Random Glucose 76 mg/dl Calcium Level 8.4 mg/dl Total Bilirubin 1.3 mg/dl Direct Bilirubin 0.7 mg/dl Aspartate Amino Transf (AST/SGOT) 55 U/L Alanine Aminotransferase (ALT/SGPT) 149 U/L Alkaline Phosphatase 202 U/L Total Protein 6.2 gm/dl Albumin 2.9 gm/dl Lipase 109 U/L Assessment and Plan 52 y/o F who was admitted on 01/01 for a cholecystectomy with Dr. Ibarra tomorrow. Cholelithiasis: - Planning for cholecystectomy this afternoon by Dr. Ibarra - possible D/C later today vs tomorrow - LFTs trending down - Only recommendations is patient does not utilize NSAIDs due to her gastric sleeve Elevated BP without H/O HTN: - May be anxiety driven/pain? Appears to largely be situational and currently resolved - No further intervention necessary and she has never been on HTN medications; This can be monitored by her PCP for need for intervention in the future however not warranted at this time Hypokalemia: - Replete as necessary H/O Gastric Sleeve: STABLE Disposition: Medically suitable for D/C per primary either today if uneventful surgical intervention or tomorrow. Medically she is hemodynamically stable. Hospitalist service will sign off at this time. Please do not hesitate to call us for any change is clinical status. Discharge planning: home
[2018-01-02] MEDS ORDERED: HYDROCODONE/ACETAMIN 5/325MG TAB PO PRN (14:00)
[2018-01-02] MEDS ORDERED: PROMETHAZINE HCL INJ 25 MG in SODIUM CHLORIDE 0.9% 50ML 50 ML IV PRN (14:00)
[2018-01-02] MEDS ORDERED: ONDANSETRON INJ 2 MG/ML 2 ML VIAL IV PRN ×2 (14:00→15:00)
--- NOTE | 2018-01-02 14:28 | OPERATIVE REPORT ---
DATE OF OPERATION: 01/02/2018 NAME OF OPERATION: Laparoscopic cholecystectomy. PREOPERATIVE DIAGNOSIS: Acute cholecystitis. POSTOPERATIVE DIAGNOSIS: Same with chronic cholecystitis. STAFF SURGEON: Dr. Ibarra. IGNITER CAPPER: Garrick Humphrey PA-C ANESTHESIA: General. DESCRIPTION OF PROCEDURE: The patient was brought in the operating room and placed on the operating table in supine position. Her abdomen was prepped and draped in usual fashion. 0.5% plain Marcaine was used to anesthetize the skin and subcutaneous tissue just above the umbilicus. Incision made carrying dissection down, placing a Veress needle producing pneumoperitoneum, placing an 11 mm port at this level. The patient did have pneumatic stockings and orogastric tube placed prior to incision. At this point, under visualization, three 5 mm ports were placed, 1 cephalad and 2 laterally. Gallbladder was grasped and retracted. It was thickened and distended. It was aspirated of bile. Dissection was carried out at the sridhar hepatis, identifying the cystic duct. The duct was initially attempted to be opened to perform cholangiography; however, it was very small and transected. Therefore, it was grasped and then clipped. Cystic artery was then identified, clipped and transected and the gallbladder dissected away from the liver bed. There was evidence of acute and chronic cholecystitis in the posterior wall, relatively severe. At this point, the gallbladder was placed in an Endobag. After appropriate hemostasis and irrigation, the Endobag was removed through the umbilical site. I did have to enlarge the fascial defect secondary to the number of stones. The fascia at the umbilicus closed using interrupted 0 Vicryl suture, and then the subcutaneous tissue reapproximated using 2-0 plain suture and then the skin reapproximated using 4-0 nylon suture. The patient was transferred to recovery room in stable condition. My design assistant helped with prepping, draping, entering the abdominal cavity, removal of the gallbladder and closure of the wounds. I attest to the content of the Intraoperative Record and any orders documented therein. Any exception s are noted below.
--- NOTE | 2018-01-02 14:48 | Anesthesiology Progress Note ---
Anesthesia Post Op Note Date & Time January 02, 2018 at 14:48 Vital Signs Pain Intensity: 1 Vital Signs Past 12 Hours Date Time Temp Pulse Resp B/P (MAP) Pulse Ox O2 Delivery O2 Flow Rate FiO2 01/02/18 14:26 36.6 124/72 01/02/18 14:25 52 16 100 01/02/18 14:25 52 16 01/02/18 14:21 130/71 01/02/18 14:20 51 100 01/02/18 14:20 51 16 01/02/18 14:16 127/71 01/02/18 14:15 53 15 100 01/02/18 14:15 53 15 01/02/18 14:11 132/72 01/02/18 14:10 54 01/02/18 14:10 55 14 100 01/02/18 14:06 133/75 01/02/18 14:05 53 11 01/02/18 14:05 52 11 100 01/02/18 14:01 133/75 01/02/18 14:00 53 12 01/02/18 14:00 53 12 100 01/02/18 13:56 139/81 01/02/18 13:55 55 11 100 01/02/18 13:55 56 11 01/02/18 13:51 120/77 01/02/18 13:50 55 16 100 01/02/18 13:50 54 16 01/02/18 13:45 36 56 16 120/77 100 Oxymask 6 01/02/18 10:45 Room Air 01/02/18 07:50 36.8 62 16 138/85 (102) 97 Room Air 01/02/18 07:30 Room Air Notes Mental Status: alert / awake / arousable, participated in evaluation Pt Amnestic to Procedure: Yes Nausea / Vomiting: adequately controlled Pain: adequately controlled Airway Patency, RR, SpO2: stable & adequate BP & HR: stable & adequate Hydration State: stable & adequate Anesthetic Complications: no major complications apparent
[2018-01-02] MEDS ORDERED: PROMETHAZINE HCL INJ 12.5 MG in SODIUM CHLORIDE 0.9% 50ML 50 ML IV PRN (15:00)
[2018-01-02] MEDS ORDERED: ATROPINE SULFATE 0.1 MG/ML 5ML SYR IV PRN (15:00)
[2018-01-02] MEDS ORDERED: EpHEDrine SULFATE INJ 50 MG/ML AMP IV PRN (15:00)
[2018-01-02] MEDS ORDERED: FENTANYL CITRATE INJ 50 MCG/1 ML 2 ML VIAL IV PRN (15:00)
[2018-01-02] MEDS: HYDROCODONE/ACETAMIN 5/325MG TAB PO PRN ×3 (16:47→21:34)
[2018-01-02] MEDS ORDERED: MAGNESIUM HYDROXIDE SUSP 30 ML UDC PO PRN (20:00)
[2018-01-02] MEDS ORDERED: POLYETHYLENE (MIRALAX) 17 GM PACK PO PRN (20:00)
[2018-01-02] MEDS: RANITIDINE HCL 150 MG TAB PO SCH (20:59)
[2018-01-02] MEDS: DOCUSATE SODIUM 100 MG CAP PO SCH (21:00)
[2018-01-03] MEDS: LACTATED RINGER'S 1000ML 1,000 ML IV SCH (01:53)
[2018-01-03] MEDS: HYDROCODONE/ACETAMIN 5/325MG TAB PO PRN ×3 (01:56→09:44)
[2018-01-03 03:02] VITALS: BP 98/63; PULSE 64; TEMP 36.7; O2SAT 96
[2018-01-03 06:05] LABS: HEMATOCRIT 35.8 % (37-47); HEMOGLOBIN 12.2 g/dL (12.0-16.0); MEAN CELL VOLUME 87.3 fL (80-100); MEAN CORPUSCULAR HEMOGLOBIN 29.8 pg (25-34); MEAN CORPUSCULAR HGB CONC 34.1 g/dl (32-36); PLATELET COUNT 292 K/uL (130-400); RED CELL DISTRIBUTION WIDTH CV 12.5 % (11.5-14.5); RED CELL DISTRIBUTION WIDTH SD 40.2 fL (36.4-46.3); WHITE BLOOD COUNT 7.17 K/uL (4.8-10.8)
[2018-01-03] MEDS ORDERED: HYDR-5688 PO (06:15)
--- NOTE | 2018-01-03 06:17 | Discharge Instructions ---
Discharge Instructions Date of Service January 03, 2018. Admission Reason for Admission: Cholelithiasis Discharge Discharge Diagnosis / Problem: acute/chronic cholecystitis Discharge Goals Goal(s): Decrease discomfort, Improve function, Improve disease control Activity Recommendations Activity Limitations: as noted below Lifting Limitations: no more than 25 pounds Exercise/Sports Limitations: until after follow-up appointment May Resume Sexual Activity: when tolerated Shower/Bathe: no limitations (no bath, may shower) Driving or Machine Use: resume 3 days after discharge . Instructions / Follow-Up Instructions / Follow-Up SPECIAL CARE INSTRUCTIONS: * Cover incisions and change daily for comfort/drainage * Expect some swelling and bruising. Call your doctor if: * Temperature above 101 degrees * Pain not relieved by pain medicine ordered * There is increased drainage or redness from any incision * You have any unanswered questions or concerns [phone]. FOLLOW UP VISIT: If not already scheduled, please call the office for a follow-up visit. for next week- some suture removal OFFICE PHONE NUMBER: Dr. Ibarra Office Current Hospital Diet Patient's current hospital diet: Regular Diet Discharge Diet Recommended Diet: Regular Diet Procedures Procedures Performed: Laparoscopic Cholecystectomy Pending Studies Studies pending at discharge: no Laboratory Results Lipid Panel Test 11/09/17 09:55 Range/Units Triglycerides Level 59 0-150 mg/dl Cholesterol Level 170 0-200 mg/dl HDL Cholesterol 81 mg/dl Cholesterol/HDL Ratio 2.1 LDL Cholesterol, Calculated 77 mg/dl Medical Emergencies . Who to Call and When: Medical Emergencies: If at any time you feel your situation is an emergency, please call 911 immediately. . Non-Emergent Contact Non-Emergency issues call your: Primary Care Provider, Surgeon . "Provider Documentation" section prepared by Shashank Ibarra. .
[2018-01-03 06:34] LABS: CALCIUM 8.6 mg/dl (8.5-10.1); CREATININE 0.77 mg/dl (0.60-1.20); POTASSIUM 3.5 mmol/L (3.5-5.1)
[2018-01-03 06:38] LABS: TOTAL PROTEIN 6.8 gm/dl (6.4-8.2)
--- NOTE | 2018-01-03 07:56 | Anesthesiology Progress Note ---
Anesthesia Post Op Note Date & Time January 03, 2018 at 07:55 Vital Signs Vital Signs Past 12 Hours Date Time Temp Pulse Resp B/P (MAP) Pulse Ox O2 Delivery O2 Flow Rate FiO2 01/03/18 03:02 36.7 64 17 98/63 (75) 96 Room Air 01/03/18 00:00 Room Air 01/02/18 22:57 36.7 73 18 99/65 (76) 95 Room Air 01/02/18 20:00 Room Air Notes Mental Status: alert / awake / arousable, participated in evaluation Pt Amnestic to Procedure: Yes Nausea / Vomiting: adequately controlled Pain: adequately controlled Airway Patency, RR, SpO2: stable & adequate BP & HR: stable & adequate Hydration State: stable & adequate Anesthetic Complications: no major complications apparent
[2018-01-03 08:22] VITALS: BP 102/76; PULSE 62; TEMP 36.6; O2SAT 97
[2018-01-03] MEDS: DOCUSATE SODIUM 100 MG CAP PO SCH (08:36)
--- NOTE | 2018-01-03 09:07 | DISCHARGE SUMMARY ---
DATE OF DISCHARGE: 01/03/18 PRINCIPAL DIAGNOSIS: Acute and chronic cholecystitis. PROCEDURES: The patient underwent laparoscopic cholecystectomy. HISTORY OF PRESENT ILLNESS: The patient is a 52-year-old female admitted to the hospital through the Emergency Room with abdominal pain and findings on ultrasound consistent with acute cholecystitis and also elevated liver functions. She underwent MRCP, which was normal. On 01/02/2018 she was taken to the operating room where she underwent laparoscopic cholecystectomy showing acute and chronic cholecystitis. I attempted to perform cholangiography, but her cystic duct was very small and we were unable to perform the cholangiogram. She did quite well overnight and was felt stable for discharge home after we check her laboratories. It may be that we will follow her LFTs as an outpatient. I did discuss with her the possible need in the future of endoscopy depending on her progress.
[2018-01-03 09:45] VITALS: O2SAT 97
[2018-01-03 10:01] VITALS: BP 102/76; PULSE 62; TEMP 36.6; O2SAT 97
== END 2018-01-03 10:17 | disposition home or self-care (01) | DRG 418 ==
LOC: C.EDB 11:47 → C.MSW 16:05 → ENRESERV 16:18
PROVIDERS: ADMIT Surgery; ATTEND Surgery
PROC: 0FT44ZZ Resection of Gallbladder, Percutaneous Endoscopic Approach (ICD-10-PCS; principal; 2018-01-02 13:45)
DX: K81.2 Acute cholecystitis with chronic cholecystitis (principal); R17 Unspecified jaundice; E87.6 Hypokalemia; R51 Headache; Z79.899 Other long term (current) drug therapy; Z98.84 Bariatric surgery status; Z88.2 Allergy status to sulfonamides